=== PATIENT | female | born 1950 | race Caucasian/White ===

== ENCOUNTER 2018-09-29 07:49 | Outpatient (CLI) | payer OTHER | END 2018-09-29 12:37 | disposition home or self-care (01) | LOC: NUCLEAR 07:49 | DX: I20.9 Angina pectoris, unspecified (principal) | CPT/HCPCS: 78452; 93017; A9500; J0153 ==

== ENCOUNTER 2019-01-28 07:49 | Outpatient (CLI) | payer OTHER | END 2019-01-28 07:51 | disposition home or self-care (01) | LOC: RAD 07:49 | DX: E11.319 Type 2 diabetes mellitus with unspecified diabetic retinopathy without macular edema (principal); E66.09 Other obesity due to excess calories; M77.30 Calcaneal spur, unspecified foot; Z79.84 Long term (current) use of oral hypoglycemic drugs; E11.40 Type 2 diabetes mellitus with diabetic neuropathy, unspecified; E11.618 Type 2 diabetes mellitus with other diabetic arthropathy; E11.65 Type 2 diabetes mellitus with hyperglycemia; E55.9 Vitamin D deficiency, unspecified; E11.42 Type 2 diabetes mellitus with diabetic polyneuropathy; E11.51 Type 2 diabetes mellitus with diabetic peripheral angiopathy without gangrene ==

== ENCOUNTER 2021-09-28 07:33 | Outpatient (CLI) | payer OTHER | END 2021-09-28 07:41 | disposition home or self-care (01) | LOC: NUCLEAR 07:33 | PROVIDERS: ATTEND Internal Medicine Cardiovascular Disease | DX: I25.10 Atherosclerotic heart disease of native coronary artery without angina pectoris (principal) | CPT/HCPCS: 78451; A9500; J0153 ==